=== PATIENT | female | born 1975 | race Caucasian/White ===

== ENCOUNTER 2023-10-12 17:19 | Emergency (ER) | payer OTHER, MEDICARE, SELFPAY ==
[2023-10-12 17:53] VITALS: BP 117/81; PULSE 68; TEMP 37.2; O2SAT 97; BMI 31.8
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
== END 2023-10-12 21:02 | disposition home or self-care (01) ==
PROVIDERS: Emergency Provider Internal Medicine
DX: S16.1XXA Strain of muscle, fascia and tendon at neck level, initial encounter (principal); S39.012A Strain of muscle, fascia and tendon of lower back, initial encounter; V43.62XA Car passenger injured in collision with other type car in traffic accident, initial encounter
CPT/HCPCS: 71045; 72125; 72131; 99284